=== PATIENT | male | born 2000 | race Caucasian/White ===

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

== ENCOUNTER 2020-12-04 21:18 | Inpatient (IN) ==
[2020-12-04] MEDS ORDERED: SODIUM CHLORIDE 0.9% 1000ML 1,000 ML IV ONE (21:33)
[2020-12-04] MEDS ORDERED: MoRPHine SULFATE 4 MG/ML 1 ML CARP\\VIAL IV STA ×2 (21:39→23:27)
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
[2020-12-04] MEDS ORDERED: OPTIRAY 320 100ml IV ONE (21:48)
[2020-12-04 22:29] LABS: Basophils # (auto) 0.02 K/uL (0-0.2); Basophils % (auto) 0.2 %; Eosinophils # (auto) 0.05 K/uL (0-0.5); Eosinophils % (auto) 0.5 %; Hematocrit (blood only) 40.9 % (42-52); Hemoglobin 14.1 g/dL (14.0-18.0); Immature Granulocytes # (auto) 0.04 K/uL (0.00-0.02); Immature Granulocytes % (auto) 0.4 %; Lymphocytes % (auto) 17.6 %; Mean Corpuscular Hemoglobin 29.6 pg (25-34); Mean Corpuscular Hgb Conc 34.5 g/dL (32-36); Mean Corpuscular Volume 85.9 fL (80-100); Mean Platelet Volume 9.9 fL (7.4-10.4); Monocytes # (auto) 1.34 K/uL (0.11-0.59); Monocytes % (auto) 12.4 %; Neutrophils # (auto) 7.47 K/uL (1.4-6.5); Neutrophils % (auto) 68.9 %; Platelet Count 199 K/uL (130-400); RDW Coefficient of Variation 13.2 % (11.5-14.5); RDW Standard Deviation 41.6 fL (36.4-46.3); Red Blood Count 4.76 M/uL (4.7-6.1); White Blood Count 10.82 K/uL (4.8-10.8)
[2020-12-04 23:09] LABS: Albumin Globulin Ratio 1.2 (0.9-2); Albumin Level 3.9 gm/dl (3.4-5.0); BUN Creatinine Ratio 21.1 (10-20); Bilirubin,Total 0.4 mg/dl (0.2-1); Calcium 8.5 mg/dl (8.5-10.1); Creatinine Clr Calc Pharmacy 134.7 ml/min; Est GFR (African American) 107.5 ml/min; Est GFR (Non-African American) 92.7 ml/min; Globulin 3.2 gm/dl (2.5-4.0); Potassium 3.9 mmol/L (3.5-5.1); Total Protein 7.1 gm/dl (6.4-8.2); Troponin I 0.067 ng/ml (0-0.045)
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
[2020-12-05] MEDS ORDERED: MoRPHine SULFATE 4 MG/ML 1 ML CARP\\VIAL IV PRN (02:16)
[2020-12-05] MEDS ORDERED: MoRPHine SULFATE 2 MG/ML CARP IV PRN (02:16)
[2020-12-05] MEDS ORDERED: DICLOFENAC SOD 1% GEL 100 GM TUBE EXT PRN (02:16)
[2020-12-05] MEDS ORDERED: NITROGLYCERIN SL 0.4 MG/TAB TAB SL PRN (02:16)
[2020-12-05] MEDS ORDERED: POLYETHYLENE (MIRALAX) 17 GM PACK PO PRN (02:16)
[2020-12-05] MEDS ORDERED: ONDANSETRON INJ 2 MG/ML 2 ML VIAL IV PRN (02:16)
[2020-12-05] MEDS ORDERED: MAGNESIUM HYDROXIDE SUSP 30 ML UDC PO PRN (02:16)
[2020-12-05] MEDS ORDERED: ALUMINUM/MAGNESIUM SUSP 30 ML UDC PO PRN (02:16)
[2020-12-05] MEDS ORDERED: ACETAMINOPHEN 325 MG TAB PO PRN (02:16)
--- NOTE | 2020-12-05 04:31 | Billing Data ---
Date of Service December 04, 2020 Coding Level of Care Code 59329 Initial Inpt Care Lvl 2
[2020-12-05 06:47] LABS: Basophils # (auto) 0.02 K/uL (0-0.2); Basophils % (auto) 0.3 %; Eosinophils # (auto) 0.15 K/uL (0-0.5); Hemoglobin 13.5 g/dL (14.0-18.0); Immature Granulocytes # (auto) 0.03 K/uL (0.00-0.02); Immature Granulocytes % (auto) 0.4 %; Lymphocytes # (auto) 2.16 K/uL (1.2-3.4); Lymphocytes % (auto) 28.2 %; Mean Corpuscular Hemoglobin 29.7 pg (25-34); Mean Corpuscular Hgb Conc 33.8 g/dL (32-36); Mean Corpuscular Volume 87.9 fL (80-100); Monocytes # (auto) 1.23 K/uL (0.11-0.59); Monocytes % (auto) 16.1 %; Neutrophils # (auto) 4.06 K/uL (1.4-6.5); Platelet Count 200 K/uL (130-400); RDW Coefficient of Variation 13.6 % (11.5-14.5); RDW Standard Deviation 43.9 fL (36.4-46.3); Red Blood Count 4.55 M/uL (4.7-6.1); White Blood Count 7.65 K/uL (4.8-10.8)
[2020-12-05 07:05] LABS: Calcium 8.6 mg/dl (8.5-10.1); Creatinine Clr Calc Pharmacy 162.4 ml/min; Est GFR (African American) 134.6 ml/min; Est GFR (Non-African American) 116.1 ml/min; Potassium 3.7 mmol/L (3.5-5.1)
--- NOTE | 2020-12-05 08:20 | XRay Report ---
XR shoulder RT min 2V routine CLINICAL HISTORY: Right shoulder pain status post injury. COMPARISON: None FINDINGS: Alignment of the right shoulder is anatomic. There is no acute fracture. There is no osseo us lesion. Joint spaces are preserved. IMPRESSION: No acute fracture or dislocation within the right shoulder. ACT 112: Negative or not required by law. Electronically signed by: Toni Langston M.D. 12/05/2020 8:19 AM
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
--- NOTE | 2020-12-05 08:40 | CT Scan Report ---
CT thoracic spine w con CT DOSE: CLINICAL HISTORY: trauma, chest wall bruising/pain TECHNIQUE: A dose lowering technique was utilized adhering to the principles of ALARA. COMPARISON STUDY: None. FINDINGS: No evidence of acute fracture or traumatic malalignment. Vertebral body heights and intervertebral disc spaces are maintained. Few Schmorl nodes are seen within mid thoracic spine. Normal thoracic kyphosis is preserved. Central canal and bilateral neuroforamina are patent. IMPRESSION: No acute fracture or traumatic malalignment. ACT 112: Negative or not required by law. The above report was generated using voice recognition software. It may contain grammatical, syntax o r spelling errors. Electronically signed by: Nieves Jackson DO 12/05/2020 8:39 AM
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
--- NOTE | 2020-12-05 08:53 | CT Scan Report ---
CT lumbar spine w con CT DOSE: CLINICAL HISTORY: trauma, chest wall bruising/pain TECHNIQUE: A dose lowering technique was utilized adhering to the principles of ALARA. COMPARISON STUDY: September 29, 2019 FINDINGS: No acute fracture or traumatic malalignment is seen. Minimal retrolisthesis of L5 on S1 is again seen and unchanged since prior. Vertebral body heights and intervertebral disc spaces are maintained. Normal lumbar lordosis is preserved. Large Schmorl nodule is again seen within L3 vertebral body. No central canal or neural foraminal stenosis is seen. IMPRESSION: No acute fracture or traumatic malalignment. ACT 112: Negative or not required by law. The above report was generated using voice recognition software. It may contain grammatical, syntax o r spelling errors. Electronically signed by: Nieves Jackson DO 12/05/2020 8:52 AM
[2020-12-05] MEDS ORDERED: LIDOCAINE 5% 1 PATCH TD SCH (09:00)
[2020-12-05] MEDS ORDERED: IBUPROFEN 600 MG TAB PO STA (10:12)
--- NOTE | 2020-12-05 11:53 | Electrocardiogram Report ---
Test Reason : Blood Pressure : / mmHG Vent. Rate : 088 BPM Atrial Rate : 088 BPM P-R Int : 172 ms QRS Dur : 088 ms QT Int : 374 ms P-R-T Axes : 078 051 058 degrees QTc Int : 452 ms Poor data quality, interpretation may be adversely affected Normal sinus rhythm ST elevation, consider early repolarization Borderline ECG When compared with ECG of 07-FEB-2015 04:55, T wave amplitude has increased in Anterolateral leads Confirmed by Boy Siddiqui ([id number]) on 12/05/2020 11:52:56 AM Referred By: REFERRED SELF Confirmed By:Boy Siddiqui
--- NOTE | 2020-12-05 11:53 | Electrocardiogram Report ---
Test Reason : Blood Pressure : / mmHG Vent. Rate : 083 BPM Atrial Rate : 083 BPM P-R Int : 172 ms QRS Dur : 090 ms QT Int : 380 ms P-R-T Axes : 069 041 051 degrees QTc Int : 446 ms Normal sinus rhythm Normal ECG When compared with ECG of 04-DEC-2020 22:16, (unconfirmed) No significant change was found Confirmed by Boy Siddiqui ([id number]) on 12/05/2020 11:53:21 AM Referred By: REFERRED SELF Confirmed By:Boy Siddiqui
--- NOTE | 2020-12-05 11:55 | Electrocardiogram Report ---
Test Reason : Blood Pressure : / mmHG Vent. Rate : 073 BPM Atrial Rate : 073 BPM P-R Int : 178 ms QRS Dur : 090 ms QT Int : 408 ms P-R-T Axes : 072 040 048 degrees QTc Int : 449 ms Normal sinus rhythm Early repolarization Normal ECG When compared with ECG of 04-DEC-2020 23:20, (unconfirmed) No significant change was found Confirmed by Boy Siddiqui ([id number]) on 12/05/2020 11:55:31 AM Referred By: REFERRED SELF Confirmed By:Boy Siddiqui
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
--- NOTE | 2020-12-05 19:39 | Billing Data ---
Date of Service December 05, 2020 Coding Level of Care Code D/C DAY MANAGEMENT <30 MINS
== END 2020-12-05 14:03 | disposition home or self-care (01) | DRG 316 ==
LOC: ED 21:18 → SUATTDRO 23:52 → 2S 23:52